=== PATIENT | female | born 1955 | race Caucasian/White ===

== ENCOUNTER 2023-09-13 13:02 | Outpatient (RCR) | payer OTHER, SELFPAY | END 2023-09-13 23:59 | disposition home or self-care (01) | LOC: RPT 13:02 | PROVIDERS: ATTENDING PHYSICIAN Surgery | DX: I97.2 Postmastectomy lymphedema syndrome (principal); C50.912 Malignant neoplasm of unspecified site of left female breast; Z73.6 Limitation of activities due to disability; M79.602 Pain in left arm | CPT/HCPCS: 97140 ==

== ENCOUNTER 2023-10-18 14:06 | Outpatient (RCR) | payer OTHER, SELFPAY | END 2023-10-18 23:59 | disposition home or self-care (01) | LOC: RPT 14:06 | PROVIDERS: ATTENDING PHYSICIAN Surgery | DX: I97.2 Postmastectomy lymphedema syndrome (principal); C50.912 Malignant neoplasm of unspecified site of left female breast; Z73.6 Limitation of activities due to disability; M79.602 Pain in left arm | CPT/HCPCS: 97110; 97140; 97535 ==

== ENCOUNTER 2023-11-15 13:59 | Outpatient (RCR) | payer OTHER, SELFPAY | END 2023-11-15 23:59 | disposition home or self-care (01) | LOC: RPT 13:59 | PROVIDERS: ATTENDING PHYSICIAN Surgery | DX: I97.2 Postmastectomy lymphedema syndrome (principal); C50.912 Malignant neoplasm of unspecified site of left female breast; Z73.6 Limitation of activities due to disability; M79.602 Pain in left arm | CPT/HCPCS: 97112; 97140 ==

== ENCOUNTER 2023-12-12 12:13 | Outpatient (RCR) | payer OTHER, SELFPAY | END 2023-12-12 23:59 | disposition home or self-care (01) | LOC: RPT 12:13 | PROVIDERS: ATTENDING PHYSICIAN Surgery | DX: I97.2 Postmastectomy lymphedema syndrome (principal); I97.52 Accidental puncture and laceration of a circulatory system organ or structure during other procedure (principal); C50.912 Malignant neoplasm of unspecified site of left female breast; Z73.6 Limitation of activities due to disability; M79.602 Pain in left arm | CPT/HCPCS: 97112; 97140 ==

== ENCOUNTER 2023-12-26 14:25 | Outpatient (RCR) | payer OTHER, SELFPAY | END 2023-12-27 07:49 | disposition home or self-care (01) | LOC: RPT 14:25 | PROVIDERS: ATTENDING PHYSICIAN Surgery | DX: I97.2 Postmastectomy lymphedema syndrome (principal); I97.52 Accidental puncture and laceration of a circulatory system organ or structure during other procedure (principal); C50.912 Malignant neoplasm of unspecified site of left female breast; Z73.6 Limitation of activities due to disability; M79.602 Pain in left arm | CPT/HCPCS: 97110; 97112; 97140 ==

== ENCOUNTER → 2024-08-21 13:55 | Outpatient (REF) | payer OTHER, SELFPAY | LOC: HWRCS 13:55 | PROVIDERS: ATTENDING PHYSICIAN Internal Medicine Cardiovascular Disease; FAMILY PHYSICIAN Internal Medicine Geriatric Medicine | DX: Z85.3 Personal history of malignant neoplasm of breast (principal); Z92.3 Personal history of irradiation; I44.7 Left bundle-branch block, unspecified | CPT/HCPCS: 93306 ==

== ENCOUNTER → 2024-10-17 14:49 | Outpatient (REF) | payer OTHER, SELFPAY | LOC: WDC 14:49 | PROVIDERS: ATTENDING PHYSICIAN Family Medicine Geriatric Medicine; FAMILY PHYSICIAN Internal Medicine Geriatric Medicine | DX: M81.0 Age-related osteoporosis without current pathological fracture (principal); Z85.3 Personal history of malignant neoplasm of breast; Z12.31 Encounter for screening mammogram for malignant neoplasm of breast | CPT/HCPCS: 77063; 77067; 77080 ==